=== PATIENT | male | born 1935 | race Caucasian/White ===

== ENCOUNTER 2024-05-30 05:56 | Day surgery (SDC) | payer MEDICARE, OTHER, SELFPAY ==
[2024-05-14 09:53] VITALS: BMI 31.7
[2024-05-30] VITALS (11 sets, daily range): BP systolic 140–168; BP diastolic 81–94; BMI 31.6
[2024-05-30 08:35] LABS: ACT-LR - POC 303 Seconds (116-155)
[2024-05-30 08:54] LABS: ACT-LR - POC 294 Seconds (116-155)
--- NOTE | 2024-05-30 09:11 | ITS.CL.ABL ---
[facility] - Ablation
Ablation
Procedure Report:
ELECTROPHYSIOLOGY ABLATION STUDY
DATE:: May 30, 2024�����������������������������REFERRING: Dr. Abdoul Cornelius
INDICATION: Paroxysmal supraventricular tachycardia in the form of atrial fibrillation.��Prior history of TAVR
HISTORY: See H and P. As above
ANTIARRHYTHMIC DRUG: Nebivolol
PRE-PROCEDURE LAUREN: No intracardiac thrombus on intracardiac ultrasound
PRESENTING RHYTHM: Sinus bradycardia with first-degree AV block
'TIME-OUT':��called and confirmed.
SEDATION/ANESTHESIA:��provided via the anesthesia department using general anesthesia (LMA).
INTRAVENOUS/ARTERIAL ACCESS:
Right femoral venous - 8Fr
Left femoral venous - 8 Fr, 6 Fr
Wobbrp-bu-akugz suture to bilateral groins
Ultrasound guidance for bilateral femoral vein access was utilized by me to obtain access with demonstration of normal anatomy
CHADS-VASC Score:
HAS-Bled Score
PROCEDURE:
1.��A decapolar CS catheter was placed within the CS for mapping and pacing.��This was also used as the reference catheter for the 3-D map.
2. The intracardiac ultrasound catheter was positioned in the RA to identify the FO for targeting of transseptal puncture, assist��in identification of the pulmonary vein ostia, monitoring pre and post ablation pulmonary vein flow velocities,
monitoring for 'bubble' formation during RF application as a sign of thermal injury,��and to monitor for pericardial effusion during mapping and ablation procedure.���Left atrial size, LV ejection fraction, and pulmonary vein flows were monitored
pre and post ablation procedure. The other valves were inspected and found to be free of significant regurgitation or stenosis.
3.��Half of the calculated heparin bolus was administered prior to the first transeptal puncture.��Transseptal puncture was performed to diagnose RA and LA pressure so that safety of LA mapping and ablation could be further assessed, and to access
the left atrium and pulmonary veins for mapping and ablation.��This entailed advancing an 8 Fr SL-1 sheath with dilator into the superior vena cava and withdrawing both (monitoring intracardiac ultrasound, fluoroscopy and tip pressure) with the tip
oriented toward the atrial septum.��The fossa ovalis was engaged (indicated by sudden displacement of the sheath tip as well as tenting of the fossa seen on intracardiac ultrasound).��Left atrial access required a pass with the Brockenbrough needle
extended.��Left atrial catheter position was confirmed by pressure monitoring (RA mean pressure 8 mm Hg and LA mean pressure 14 mm Hg), LA saturation (99%),��as well as fluoroscopy.��The sheath was advanced over the dilator and positioned in the
left atrium.��This procedure was repeated for the Agilis sheath.��The remainder of the calculated heparin bolus was administered and heparin was
infused to maintain ACT at 300 -350 seconds throughout the case.
4.��RA pacing was performed via the proximal decapolar poles and LA pacing was performed via the distal decapolr poles.
5. A quadrapolar catheter was first positioned at the His position for His Bundle recording which was tagged via the 3-D Navex sytem, and then passed to the RVA for RV pacing and recording.
6. The multipolar catheter and the Tamela pulse catheter placed in each of the LIPV, LSPV, RSPV and the RIPV.��
7.��Next, a 3-D map was created using Navex.���A 3-D reconstructed CT image was compared to the 3-D Navex map to assist in anatomic interpretation, mapping and ablation.��The CT image and the NavX image were fused.
8. A total of 59 lesions were given. Initial pass with olive and basket poses to the pulmonary veins and flower pose to the roof floor and posterior wall with 51 lesions. Remapping with the multipolar catheter demonstrated signal at the roof and
posterior wall outside the left superior pulmonary vein. 8 additional lesions were given and all opposed to the kellee, basket post to the reconnected areas and flower post to the roof. Remapping demonstrated electrical silence of this region and
entrance next block was confirmed in all 4 pulmonary veins and the posterior wall.
9. AV Wenke block less than 380 ms. Atrial extrastimuli did not induce any other tachyarrhythmia.
TOTAL FLOURO TIME: 15.6 minutes 143 mGy
TOTAL RF DURATION: 0 minutes
REVERSAL OF HEPARIN: 35 mg of protamine, slow IV administration
COMPLICATIONS:
None
Intracardiac US shows no pericardial effusion post ablation.
SUMMARY:��
Complex left atrial mapping and ablation.
Isolation of all 4 pulmonary veins as well as the roof floor and posterior wall with entrance and exit block in all the structures achieved. Normal AV conduction despite baseline first-degree AV delay.
RECOMMENDATIONS:
1. Out of bed and ambulate in 4 hours
2. Resume anticoagulation
3.� Consider same-day discharge
4.��Continue current medications
Copy to: Dr. Abdoul Aaron
[2024-05-30] MEDS: TYLENOL 650 MG PO (10:05)
[2024-05-30] MEDS: FLOMAX 0.4 MG PO (10:39)
[2024-05-30] MEDS: BYSTOLIC 5 MG PO (11:21)
--- NOTE | 2024-05-30 13:25 | W.PN.UPDATE ---
Update Note
Progress Note Update
88 yo WM s/p PVI (same day). He denies cp, sob, jane diet, voiding, R fem site c/d/i no HT< soft, EKG SR 1deg AVB. He will resume Eliquis tonight. His bp was mildly elevated and his home nebivolol was given. Activity restrictions reviewed. He will
f/u Dr. Aaron as scheduled. He is for d/c home after 2pm if groin stable.
== END 2024-05-30 14:00 | disposition home or self-care (01) ==
LOC: CATH 05:56
PROVIDERS: ATTENDING PHYSICIAN Internal Medicine Cardiovascular Disease; FAMILY PHYSICIAN Internal Medicine; OTHER PHYSICIAN Internal Medicine Cardiovascular Disease
DX: I48.0 Paroxysmal atrial fibrillation (principal); G47.00 Insomnia, unspecified; M19.90 Unspecified osteoarthritis, unspecified site; N40.0 Benign prostatic hyperplasia without lower urinary tract symptoms; Z85.46 Personal history of malignant neoplasm of prostate; E78.5 Hyperlipidemia, unspecified; I10 Essential (primary) hypertension; Z95.5 Presence of coronary angioplasty implant and graft; I25.10 Atherosclerotic heart disease of native coronary artery without angina pectoris; Z87.891 Personal history of nicotine dependence; N40.1 Benign prostatic hyperplasia with lower urinary tract symptoms; R33.8 Other retention of urine; Z95.2 Presence of prosthetic heart valve; Z96.651 Presence of right artificial knee joint; Z79.82 Long term (current) use of aspirin; Z79.01 Long term (current) use of anticoagulants; Z79.899 Other long term (current) drug therapy; I44.0 Atrioventricular block, first degree; Z92.21 Personal history of antineoplastic chemotherapy
CPT/HCPCS: C1732; C1894; C1892; C1759; 85347; 93005; 93656; 93657; C1733; C1766